=== PATIENT | female | born 1990 | race Caucasian/White ===

== ENCOUNTER 2023-12-01 11:37 | Emergency (ER) | payer OTHER, SELFPAY ==
[2023-12-01 11:39] VITALS: BP 113/83
[2023-12-01 12:07] LABS: % Basophils 0.5 % (0-2); % Eosinophils 3.6 % (0-6); % Immature Granulocytes 0.1 % (0-0.5); % Lymphocytes 19.2 % (20.5-51.1); % Monocytes 9.3 % (1.7-9.3); % Neutrophils 67.3 % (42.2-75.2); Absolute Eosinophils 0.3 10^3/uL (0-0.7); Absolute Lymphocytes 1.4 10^3/uL (1.2-3.4); Absolute Monocytes 0.7 10^3/uL (0.1-0.6); Hemoglobin 14.1 g/dL (12.0-16.0); Mean Corp Hgb Conc. 34.4 g/dL (33.0-37.0); Mean Corpuscular Volume 87.2 fL (81.0-99.0); Mean Platelet Volume 9.9 fL (7.4-10.4); Nucleated Red Blood Cells % 0 %; Platelet Count 289 10^3/uL (130-400); Red Cell Dist. Width 12.8 % (11.5-14.5); White Blood Cell Count 7.4 10^3/uL (4.8-10.8)
[2023-12-01 12:08] LABS: Urine Albumin Trace (Neg - Trace); Urine Bilirubin Negative (Negative); Urine Character Slightly Cloudy (Clear); Urine Color Yellow; Urine Glucose Negative (Negative); Urine Ketone 2+ (Negative); Urine Leukocyte Negative (Negative); Urine Nitrite Negative (Negative); Urine Occult Blood 2+ (Negative); Urine Specific Gravity 1.025 (<1.030); Urine Urobilinogen Negative (Neg - 1+)
[2023-12-01 12:21] LABS: Urine Mucus Many
[2023-12-01 12:22] LABS: Urine Amorphous Seen
[2023-12-01 12:23] LABS: Urine Bacteria Few (Negative); Urine White Cell 0-2 /HPF (0-5)
[2023-12-01 12:24] LABS: HCG, Urine Qualitative Screen Negative
[2023-12-01 12:28] LABS: ALT (SGPT) 15 U/L (0-35); AST (SGOT) 24 U/L (14-36); Albumin 4.4 g/dl (3.5-5.0); Alkaline Phosphatase 51 U/L (38-126); Blood Urea Nitrogen 11 mg/dl (7-17); Calcium 9.5 mg/dl (8.4-10.2); Carbon Dioxide 27 mmol/L (22-30); Chloride 100 mmol/L (98-107); Glucose 118 mg/dl (70-99); Potassium 3.8 mmol/L (3.5-5.1); Sodium 140 mmol/L (135-145); Total Bilirubin 0.3 mg/dl (0.2-1.3); Total Protein 7.1 g/dl (6.3-8.2); eGFR > 60.00
[2023-12-01 12:52] LABS: Lipase 140 U/L (23-300)
[2023-12-01 13:25] VITALS: BP 113/76
[2023-12-01 13:28] VITALS: BMI 16.9
[2023-12-01 14:00] VITALS: BP 104/78
--- NOTE | 2023-12-01 14:09 | ED.GENMED ---
History of Present Illness
General
Chief Complaint: Abdominal Pain
Time Seen by Provider: 12/01/23 13:39
History of Present Illness
History of Present Illness:
Patient is a 33-year-old female with past medical history of asthma and ADHD here today for evaluation of lower abdominal pain associated with diarrhea that began this past Monday. She reports intermittent pain along the lower abdomen that comes
and goes, typically lasts several seconds to minutes, and then self resolves. She also endorses diarrhea and has had between 5 and 10 episodes in total per day over the past couple of days but only 3 episodes in total today. No black or blood
noted. No vomiting. No fevers. No prior abdominal surgeries. Patient denies recent travel outside of the country. No sick contacts. No recent antibiotic use. She denies eating anything out of the ordinary.
Review of Systems
Review of Systems
All Other Systems: ROS reviewed and negative except as documented in HPI and ROS
Phy Exam
Physical Exam
Physical Exam:
GENERAL: Alert , in no apparent distress
EYE: pupils equal
NECK: Supple
ENT: o/p clr, mmm.
CARDIAC: Regular rate and rhythm .
LUNGS: Clear breath sounds bilaterally, no acute respiratory distress, no wheezes/rales/rhonchi
ABDOMEN: Soft, mild tender along the bilateral lower quadrants of the abdomen, no r/g
NEUROLOGICAL: Alert and oriented, no focal neuro deficits
SKIN: Warm and dry, skin intact.
MUSCULOSKELETAL: No edema, well perfused.
PSYCH: Normal and appropriate interaction.
Course
Orders/Labs/Results
Orders:
Orders
12/01/23 11:45
Test Result ONCE
12/01/23 11:58
Complete Blood Count/With Diff Urgent
Comprehensive Metabolic Panel Urgent
Lipase Urgent
Urinalysis Reflex To Culture Urgent
Date Specimen was Collected: 12/01/23
Time Specimen was Collected: 11:45
Urine Microscopic Reflex Cult Urgent
Urine,Hcg qualitative screen [HCG, Urine Qualitative Screen] Urgent
Date Specimen was Collected: 12/01/23
Time Specimen was Collected: 11:45
12/01/23 14:23
CT Abd/pelvis W Iv Cont Urgent
Comment:
Reason For Exam: abd pain, lower, diarrhea
Abnormal Lab Results
12/01/23
11:58
Absolute Monos (auto) 0.7 H 10^3/uL
(0.1-0.6)
Lymphocytes % 19.2 L %
(20.5-51.1)
Glucose 118 H mg/dl
(70-99)
Urine Ketones 2+ A
(Negative)
Ur Occult Blood Reflex 2+ A
(Negative)
Urine RBC 3-6 A /HPF
(0-2)
Urine Bacteria (Reflex) Few A
(Negative)
12/01/23 11:58
12/01/23 11:58
Vital Signs
Initial and Last Documented VS:
Initial Vital Signs
Temp Pulse Resp BP Pulse Ox
97.7 F 91 18 113/83 100
12/01/23 11:39 12/01/23 11:39 12/01/23 11:39 12/01/23 11:39 12/01/23 11:39
Last Documented Vital Signs
Temp Pulse Resp BP Pulse Ox
97.7 F 91 18 87/61 98
12/01/23 11:39 12/01/23 11:39 12/01/23 11:39 12/01/23 17:22 12/01/23 17:23
MDM/Problems Addressed
Differential Diagnosis Includes:
Patient is a 33-year-old female with past medical history of asthma and ADHD here today for evaluation of lower abdominal pain associated with diarrhea. Overall, patient appears very well. Vital signs grossly within normal limits. Physical
examination described above. Screening labs obtained in triage which revealed a normal WBC count. Glucose slightly elevated at 118 but patient is not fasting. Urinalysis with a small amount of blood but patient is currently menstruating.
Discussed diagnostic imaging with patient including CAT scan. Risks/benefits discussed. Will proceed.
Update: CT scan reveals findings suggestive of mild uncomplicated right-sided colitis, likely of infectious/inflammatory etiology. Suspect viral etiology. Patient made aware of findings. Patient able to tolerate p.o. appropriately. No vomiting.
No fevers noted. Pain is well-controlled. Will discharge patient at this time with recommendations for supportive measures, increasing oral hydration, and brat diet. Recommend supportive measures and close follow-up. Return precaution given for
worsening symptoms. All questions answered. Stable for discharge.
*Critical Care Note
Total Time (30-74mins, 75-104mins- exclusive of procedures): Not Applicable
ED Attending Note
-
Portions of this chart may have been created with voice recognition software.� Occasional wrong word or��sound alike� substitutions may have occurred due to the inherent limitations of voice recognition software.
Discharge Plan
Departure
Patient Disposition: Home (Routine Discharge)
Date of Disposition: 12/01/23
Time of Disposition: 17:05
Patient with high blood pressure during this ER visit?: No
Condition: Good
Covid-19: Not Applicable
Discharge Problem:
Acute colitis
Instructions: Colitis (DC)
Prescriptions:
No Action
dextroamphetamine-amphetamine [Adderall] 10 mg Tablet
10 mg PO DAILY
spironolactone 100 mg Tablet
100 mg PO DAILY
Referrals:
NONE,* [Family Provider] -
Activity Restrictions/Additional Instructions:
You were seen today for evaluation of abdominal pain and diarrhea.
We obtained a CAT scan which reveals findings of right-sided colitis which is likely secondary to a stomach virus.
Rest. Drink plenty of fluids. Avoid heavy and spicy foods.
Follow-up with your doctor within the next 5 to 7 days for close reevaluation.
Return for any new, worsening, or concerning symptoms.
Interventions
Interventions:
*Risk Screen - Suicide Last Done: 12/01/23 11:39
*General Assessment Last Done: 12/01/23 11:39
*Neglect/Abuse Screening Last Done: 12/01/23 13:21
ED- Fall Risk Assessment Last Done: 12/01/23 13:29
*ED COVID-19 Vaccine History Last Done: 12/01/23 11:39
*Nursing Disposition Last Done: 12/01/23 17:29
WN-Wkkssj-Ewohnlrhbd Assessment Last Done: 12/01/23 13:28
Discharge Date and Time
Discharge Date/Time: 12/01/23 17:29
Print Language: NIGERIAN
[2023-12-01 15:00] VITALS: BP 100/69
[2023-12-01 16:19] VITALS: BP 105/71
[2023-12-01 17:22] VITALS: BP 87/61
== END 2023-12-01 17:29 | disposition home or self-care (01) ==
LOC: EMR 11:37
PROVIDERS: Emergency Medicine; EMERGENCY PHYSICIAN Emergency Medicine
DX: K52.9 Noninfective gastroenteritis and colitis, unspecified (principal); F90.9 Attention-deficit hyperactivity disorder, unspecified type; J45.909 Unspecified asthma, uncomplicated
CPT/HCPCS: 99284; 74177; 80053; 81003; 81015; 81025; 83690; 85025; Q9967

== ENCOUNTER 2024-12-02 19:58 | Inpatient (IN) | payer OTHER, SELFPAY ==
[2024-12-02 20:22] VITALS: BP 128/83; BMI 23.0
[2024-12-02] MEDS: CYTOTEC 25 MICROGRAM VAG (20:54)
[2024-12-02 21:13] LABS: Hematocrit 35.5 % (37.0-47.0); Hemoglobin 12.3 g/dL (12.0-16.0); Mean Corp Hgb Conc. 34.6 g/dL (33.0-37.0); Mean Corpuscular Volume 87.4 fL (81.0-99.0); Nucleated Red Blood Cells % 0 %; Platelet Count 122 10^3/uL (130-400); Red Cell Dist. Width 13.4 % (11.5-14.5)
[2024-12-02] MEDS: LR 1000 IV (23:41)
[2024-12-03] MEDS: LR 1000 IV ×5 (04:20→23:58)
[2024-12-03] MEDS: PRENATAL PLUS 1 TABLET PO (07:49)
[2024-12-03] MEDS: COLACE 100 MG PO (10:15)
[2024-12-03] MEDS: PITOCIN 30 UNITS/NSS 500 ML IV (10:16)
[2024-12-03] MEDS: SUBLIMAZE 100 MCG EPIDURAL (13:24)
[2024-12-03] MEDS: FENTANYL/BUPIVACAINE 100 EPIDURAL ×2 (13:24→21:18)
[2024-12-03] MEDS: PENICILLIN 110 UNITS IV (13:53)
[2024-12-03] MEDS: PENICILLIN 55 UNITS IV ×2 (18:00→21:49)
[2024-12-04] MEDS: PENICILLIN 55 UNITS IV (02:32)
[2024-12-04] MEDS: FENTANYL/BUPIVACAINE 100 EPIDURAL (04:42)
[2024-12-04] MEDS: PITOCIN 30 UNITS/NSS 500 ML IV ×2 (06:05→08:13)
[2024-12-04] MEDS: XYLOCAINE-MPF 1% VIAL 30 ML INFIL (06:10)
[2024-12-04] MEDS: PENICILLIN IV (06:29)
[2024-12-04] MEDS: TRANEXAMIC ACID 100 IV (07:47)
[2024-12-04] MEDS: COLACE 100 MG PO ×2 (07:47→19:48)
[2024-12-04] MEDS: PRENATAL PLUS 1 TABLET PO (07:47)
[2024-12-04] MEDS: MOTRIN 600 MG PO ×2 (16:14→22:16)
[2024-12-04] MEDS: TYLENOL 650 MG PO ×2 (16:14→19:48)
[2024-12-05] MEDS: TYLENOL 650 MG PO ×3 (01:12→20:29)
[2024-12-05] MEDS: MOTRIN 600 MG PO ×3 (04:20→20:28)
[2024-12-05 04:42] LABS: Hematocrit 26.9 % (37.0-47.0); Hemoglobin 9.4 g/dL (12.0-16.0)
[2024-12-05] MEDS: PRENATAL PLUS 1 TABLET PO (08:36)
[2024-12-05] MEDS: COLACE 100 MG PO ×2 (08:36→20:23)
[2024-12-06] MEDS: TYLENOL 650 MG PO (04:31)
[2024-12-06] MEDS: MOTRIN 600 MG PO (04:31)
[2024-12-06] MEDS: PRENATAL PLUS 1 TABLET PO (08:48)
[2024-12-06] MEDS: COLACE 100 MG PO (08:48)
[2024-12-06] MEDS: FEOSOL 325 MG PO (08:49)
[2024-12-06 10:36] LABS: Hematocrit 29.8 % (37.0-47.0); Hemoglobin 10.0 g/dL (12.0-16.0); Mean Corp Hgb Conc. 33.6 g/dL (33.0-37.0); Mean Corpuscular Volume 93.1 fL (81.0-99.0); Platelet Count 134 10^3/uL (130-400); Red Cell Dist. Width 14.0 % (11.5-14.5)
[2024-12-06 13:50] LABS: Syphilis/T. pallidum Ab Reflex Negative (Negative)
== END 2024-12-06 13:26 | disposition home or self-care (01) | DRG 768 ==
LOC: LDRP 19:58
PROVIDERS: Obstetrics & Gynecology; ADMITTING PHYSICIAN Student in an Organized Health Care Education/Training Program
PROC: 3E0P7VZ Introduction of Hormone into Female Reproductive, Via Natural or Artificial Opening (ICD-10-PCS; 2024-12-02)
PROC: 0DQR0ZZ Repair Anal Sphincter, Open Approach (ICD-10-PCS; 2024-12-03)
PROC: 10E0XZZ Delivery of Products of Conception, External Approach (ICD-10-PCS; 2024-12-03)
DX: O99.824 Streptococcus B carrier state complicating childbirth (principal); Z37.0 Single live birth; Z3A.39 39 weeks gestation of pregnancy; O99.12 Other diseases of the blood and blood-forming organs and certain disorders involving the immune mechanism complicating childbirth; D69.6 Thrombocytopenia, unspecified; J45.909 Unspecified asthma, uncomplicated; O99.513 Diseases of the respiratory system complicating pregnancy, third trimester; O70.21 Third degree perineal laceration during delivery, IIIa
CPT/HCPCS: 36415; 85014; 85018; 85025; 85027; 86780; 86850; 86900; 86901